=== PATIENT | male | born 1970 | race Caucasian/White ===

== ENCOUNTER 2022-05-28 10:36 | Emergency (ER) | payer SELFPAY ==
[~2022-05-28] VITALS: Ht 177.8 cm; Wt 79.4 kg
--- NOTE | 2022-05-28 15:49 | NUR ---
PATIENT IN BED ASLEEP, EASILY AROUSABLE BY VOICE. HOOKED TO MONITOR, WILL CONTINUE TO MONITOR ACCORDINGLY
--- NOTE | 2022-05-28 16:35 | NUR ---
pt awake, verbally responsive. requested for food. meal tray provided. stable vitals.
--- NOTE | 2022-05-28 17:07 | NUR ---
pt is awake, ambulatory w/ steady gait. denies si/hi. reevaluated by dr cespedes. discharge home in stable condition.
[2022-05-28 17:08] VITALS: BP 132/87
== END 2022-05-28 17:09 | disposition home or self-care (01) ==
LOC: ER 10:41
DX: F10.129 Alcohol abuse with intoxication, unspecified (principal); Y90.9 Presence of alcohol in blood, level not specified